=== PATIENT | male | born 1980 | race Caucasian/White ===

== ENCOUNTER 2019-11-30 13:34 | Emergency (ER) | payer BC, OTHER ==
[~2019-11-30] VITALS: Ht 182.9 cm; Wt 81.6 kg
--- NOTE | 2019-11-30 13:34 | NUR ---
PT BIB C/O CONFUSED AND FOR MED CLEARANCE FOR PSYCH. PT IS AAOX3, NOT IN RESPIRATORY DISTRESS, SITTER AT BEDSIDE. WILL CONTINUE TO MONITOR.
--- NOTE | 2019-11-30 13:51 | NUR ---
CALLED SECURITY FOR WANDING.
--- NOTE | 2019-11-30 14:20 | NUR ---
URINAL GIVEN BUT UNABLE TO PROVIDE URINE SPECIMEN THIS TIME.
--- NOTE | 2019-11-30 14:30 | NUR ---
This SW met with the patient at bedside. Patient was brought to [facility] ER by per report, patient was taken to [facility] but was referred to [facility] for medical clearance. Patient was alert and oriented x3. Patient was sitting in an upright position, with eyes closed, and resting his arms on his stomach with hands intersecting in a locked position. Patient confirmed demographics including date of and address. Per patient, he lives in a home with and daughter. Per patient, he needs clearance to return to his [facility]. 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 Per patient, he drinks alcohol "occasionally" but did not want to report how much he drinks. Patient denies drug and cigarette use. Per patient, denies history of mental health illnesses. Patient denies auditory and visual hallucinations. Patient denies homicidal and suicidal ideation. Patient is wanting medical clearance to return to [facility].
--- NOTE | 2019-11-30 14:32 | NUR ---
ER PHLEB AT BEDSIDE FOR BLOOD DRAW.
[2019-11-30] MEDS ORDERED: OLANZAPINE 5 MG TABLET ONE (14:39)
[2019-11-30 14:42] LABS: BASOPHILS # (AUTO) 0.1 /CMM (0.0-0.2); BASOPHILS % (AUTO) 0.5 % (0.0-2.0); EOSINOPHILS % (AUTO) 1.9 % (0.0-6.0); HEMATOCRIT 47 % (39-51); HEMOGLOBIN 15.7 g/dL (13.5-17.5); LYMPHOCYTES # (AUTO) 1.8 /CMM (0.8-4.8); MEAN CORPUSCULAR HGB CONC 34 g/dl (31.0-36.0); MEAN CORPUSCULAR VOLUME 95 fL (80-96); MONOCYTES % (AUTO) 8.6 % (2.0-12.0); NEUTROPHILS # (AUTO) 8.3 /CMM (1.8-8.9); PLATELET COUNT (AUTO) 264 /CMM (150-450); RED BLOOD CELL COUNT(AUTO) 4.92 MIL/uL (4.5-6.0); WHITE BLOOD COUNT (AUTO) 11.3 K/uL (4.3-11.0)
--- NOTE | 2019-11-30 14:45 | NUR ---
PT REFUSED HEAD CT SCAN. AWARE
[2019-11-30 14:50] LABS: CALCIUM, SERUM 9.2 mg/dL (8.5-10.1); CARBON DIOXIDE 26 mmol/L (21-32); CHLORIDE 101 mmol/L (98-107); CREATININE 1.3 mg/dL (0.6-1.3); GLUCOSE 99 mg/dL (74-106); SODIUM SERUM 136 mmol/L (136-145); UREA NITROGEN, BLOOD 19 mg/dL (7-18)
[2019-11-30 14:56] LABS: ALANINE AMINOTRANSFERASE 32 U/L (12-78); ALBUMIN 3.9 g/dL (3.4-5.0); ALCOHOL, BLOOD < 3 mg/dL (0-0); ALKALINE PHOSPHATASE 68 U/L (46-116); ASPARTATE AMINOTRANSFERASE 44 U/L (15-37); BILIRUBIN,DIRECT 0.1 mg/dL (0.0-0.2); BILIRUBIN,TOTAL 0.4 mg/dL (0.2-1.0); SALICYLATE 0.7 mg/dL (2.8-20.0); TOTAL PROTEIN, SERUM 8.3 g/dL (6.4-8.2)
[2019-11-30 14:57] LABS: ACETAMINOPHEN 0 ug/ml (10-30)
[2019-11-30] MEDS ORDERED: OLANZAPINE 5 MG TABLET PO ONE (15:00)
--- NOTE | 2019-11-30 16:15 | NUR ---
COVID SPECIMEN COLLECTED AND SENT TO LAB.
--- NOTE | 2019-11-30 16:17 | NUR ---
Patient discharged to home in stable condition. Written and verbal after care instructions given. Patient and patient's . verbalizes understanding of instruction.
[2019-11-30 16:19] VITALS: BP 141/91
[2019-11-30 16:26] LABS: APPEARANCE,URINE Clear (CLEAR); BILIRUBIN,URINE Negative (NEGATIVE); BLOOD, URINE Trace-lysed Ery/uL (NEGATIVE); COLOR,URINE Yellow (YELLOW); KETONES,URINE 15 (NEGATIVE); LEUKOCYTE ESTERASE ,URINE Negative (NEGATIVE); NITRITE, URINE Negative (NEGATIVE); PROTEIN,URINE Negative (NEGATIVE); UGLUCOSE Negative (NEGATIVE); UROBILINOGEN,URINE 0.2 EU/dL (0.2)
[2019-11-30 16:31] LABS: BACTERIA,URINE Rare /HPF (None Seen); SQUAMOUS EPITHELIAL CELL,UR Few /HPF (None Seen); WBC,URINE NONE SEEN /HPF (0-3)
--- NOTE | 2019-11-30 18:13 | NUR ---
FAXED FACE SHEET AND SUMMARY REPORT TO [facility] [phone]
== END 2019-11-30 16:21 | disposition home or self-care (01) ==
LOC: ER 13:36
DX: F29 Unspecified psychosis not due to a substance or known physiological condition (principal); Z20.828 Contact with and (suspected) exposure to other viral communicable diseases
CPT/HCPCS: 36415; 80048; 80076; 80305; 80307; 80329; 81001; 85025; 87426; 99283; C9803; G0480; 81000-TC

== ENCOUNTER 2019-11-30 19:14 | Emergency (ER) | payer OTHER ==
[~2019-11-30] VITALS: Ht 182.9 cm; Wt 79.4 kg
[2019-11-30] MEDS ORDERED: OLANZAPINE 5 MG TABLET PO ONE (19:30)
[2019-11-30] MEDS ORDERED: OLANZAPINE 5 MG TABLET ONE (19:34)
[2019-11-30] MEDS ORDERED: LORAZEPAM 1 MG TABLET ONE (19:53)
--- NOTE | 2019-11-30 20:04 | NUR ---
YAN FROM [facility] TO ER BED 14. PT IS AWAKE AND ALERT. DELUSIONAL. NOT IN RESOP DISTRESS. AMBULATORY. BROUGHT IN FOR VERBALIZATION OF SUICIDAL IDEATION. PER REPORT BY MICHAEL, PT WAS ENROUTE TO [facility] WHERE HE IS GOING FOR VOLUNTARY ADMISSION. WHILE ENROUTE TO FACILITY, PT WAS REPORTED TO HAVE HAD A MENTAL BREAK DOWN, VERBALIZED HE DOES NOT WANT TO BE ADMITTED AND VERBALIZED THAT HE JUST WANT TO END IT ALL. NO VERBALIZED PALN OBTAINED FROM THE PATIENT. MD WAS AT THE BEDSIDE FOR EVAL. ORDERS RECEIVED NOTED AND CARRIED OUT. MEDICATED ORDERED
[2019-11-30] MEDS ORDERED: LORAZEPAM 1 MG TABLET PO ONE (21:00)
--- NOTE | 2019-11-30 21:10 | NUR ---
SPOKE WITH SHAHLA FOR PT UPDATE.
--- NOTE | 2019-11-30 21:24 | NUR ---
CJ CALLED FROM [facility], NO UPDATES.
--- NOTE | 2019-11-30 22:26 | NUR ---
PT IN BED SLEEPING NAD NOTED. VSS
--- NOTE | 2019-11-30 23:09 | NUR ---
MJ FROM [facility] INTAKE UPDATED. SENT CLINICALS
--- NOTE | 2019-11-30 23:09 | NUR ---
MJ ([facility] INTAKE) [phone]
--- NOTE | 2019-12-01 01:24 | NUR ---
PT AMBULATED TO THE RESTROOM,VSS.
--- NOTE | 2019-12-01 03:45 | NUR ---
Patient is resting comfortably in bed with eyes closed. Easily aroused. VSS
--- NOTE | 2019-12-01 06:49 | NUR ---
PT ASLEEP, EASILY AROUSABLE, NO ACUTE DISTRESS NOTED, RESP EVEN AND UNLABORED. PT AAOX4. DENIES PAIN OR DISCOMFORT AT THIS TIME. CALL LIGHT WITHIN REACH. 1:1 SITTER AT BEDSIDE. WILL CONTINUE TO MONITOR PT.
--- NOTE | 2019-12-01 08:09 | NUR ---
CALLED [facility] SPOKE WITH [facility] ITS IS A PRIORITY AND WILL CALL US BACK SOON BED IS AVIALABLE.
--- NOTE | 2019-12-01 09:18 | NUR ---
PATIENT DENIES BEING SUICIDAL AT THIS TIME. MADE AWARE.
--- NOTE | 2019-12-01 09:25 | NUR ---
Patient discharged to home in stable condition. Written and verbal after care instructions given. Patient verbalizes understanding of instruction. Refused to sign DC paper.
[2019-12-01 09:26] VITALS: BP 132/71
== END 2019-12-01 09:27 | disposition home or self-care (01) ==
LOC: ER 19:15
DX: F29 Unspecified psychosis not due to a substance or known physiological condition (principal); R45.851 Suicidal ideations; R45.1 Restlessness and agitation